=== PATIENT | female | born 1980 | race Caucasian/White ===

== ENCOUNTER 2017-02-02 06:01 | Day surgery (SDC) | payer MEDICARE, MEDICAID ==
[~2017-02-02] VITALS: Ht 167.6 cm; Wt 199.0 kg
--- NOTE | ~2017-02-02 | OR ---
ADMIT: 02/02/2017 RM/LOC: [facility] MR#: [id number] [id number] [place], [place] [id number] [facility] [address] [place] [address] Operative/Delivery Room Report SEX: F AGE: 36 : 1980 SURGERY DATE: 02/02/2017 SURGEON: Srinivasan Bertrand MD PREOPERATIVE DIAGNOSIS: Cholelithiasis. POSTOPERATIVE DIAGNOSES: Cholelithiasis with cholecystitis. PROCEDURE: 1. Vaginal exam under anesthesia. 2. Laparoscopic cholecystectomy. ASSISTING: CAMI Schuster whose assistance for the gallbladder was necessary for laparoscopic visualization and tissue retraction. ESTIMATED BLOOD LOSS: 25 mL. 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 There was no palpable abnormality dominant in either breast. No nipple retraction or skin dimpling and no axillary adenopathy noted on either side. Vaginal exam was performed with speculum visualization. There was no palpable suspicious nodule or visual abnormality found. Vaginal rectal septum was intact. DESCRIPTION OF PROCEDURE: The abdomen was prepped and draped in the sterile standard surgical fashion. A 5 mm infraumbilical incision was made in the skin. The fascia was grasped with Corey clamp, and a Veress needle was advanced into the peritoneal cavity. Carbon dioxide was used to insufflate the abdomen to 15 mmHg pressure. The Veress needle was withdrawn, and a 5 mm Optiview trocar was placed. Next, an 11 mm subxiphoid port and 2 right lateral 5 mm ports were placed under visualization. The gallbladder was markedly distended and adherent to surrounding structures with inflammatory adhesions. This was retracted cephalad. There were numerous very large stones in the gallbladder. Calot's triangle was then carefully dissected with cautery. The cystic duct was skeletonized and the view of safety was obtained. There was a prominent right hepatic artery and a very short cystic artery. This was skeletonized, isolated, doubly clipped proximally, singly clipped distally, and divided. The cystic duct was then skeletonized doubly clipped distally, singly clipped proximally, and divided. The gallbladder was ADMIT: 02/02/2017 RM/LOC: [facility] MR#: [id number] [address] [id number] [facility] [address] [place] [address] Operative/Delivery Room Report SEX: F AGE: 36 : 1980 then excised from the gallbladder fossa with Bovie cautery. It was placed in an EndoCatch bag and removed through the subxiphoid port site. The right upper quadrant was irrigated. There was no evidence of bleeding. No evidence of bile leak, and the clips remained intact on the cystic duct and artery. The ports were removed under visualization without evidence of bleeding. The fascial margin at the subxiphoid port site was approximated with 0 Vicryl suture and the suture passer. The abdomen was allowed to deflate. Skin edges were approximated with 4-0 Monocryl in a subcuticular fashion and Dermabond. Local anesthetic was injected at the incisions. Sponge, needle, and instrument counts were correct at the end of the case. The patient tolerated the procedure well. Transferred to recovery in stable condition. Srinivasan Bertrand MD/ anne-marie JOB #: [id number] CC: Srinivasan Bertrand, Attending Physician Elvis Mackenzie, Family Physician
== END 2017-02-02 15:35 | disposition home or self-care (01) ==
LOC: SSS 06:01
PROC: 0UJH7ZZ Inspection of Vagina and Cul-de-sac, Via Natural or Artificial Opening (ICD-10-PCS; principal; 2017-02-02)
PROC: 0FT44ZZ Resection of Gallbladder, Percutaneous Endoscopic Approach (ICD-10-PCS; principal; 2017-02-02)
DX: K80.10 Calculus of gallbladder with chronic cholecystitis without obstruction (principal); F31.9 Bipolar disorder, unspecified; Z90.710 Acquired absence of both cervix and uterus; Z98.818 Other dental procedure status; Z88.1 Allergy status to other antibiotic agents; Z88.8 Allergy status to other drugs, medicaments and biological substances; Z79.899 Other long term (current) drug therapy; Z79.82 Long term (current) use of aspirin; Z79.52 Long term (current) use of systemic steroids